=== PATIENT | male | born 1975 | race Hispanic/Latino ===

== ENCOUNTER 2025-03-06 01:22 | Emergency (ER) | payer MEDICAID, SELFPAY ==
[2025-03-06] VITALS (10 sets, daily range): BP systolic 148–222; BP diastolic 83–118; BMI 22.2
[2025-03-06 01:27] LABS: Glucose - Point of Care 209 mg/dl (70-99)
[2025-03-06 01:43] LABS: Hematocrit 37.7 % (39.0-52.0); Hemoglobin 12.2 g/dL (13.0-18.0); Mean Corp Hgb Conc. 32.4 g/dL (33.0-37.0); Mean Corpuscular Volume 95.4 fL (80.0-94.0); Nucleated Red Blood Cells % 0 % (-); Platelet Count 199 10^3/uL (130-400); Red Cell Dist. Width 13.9 % (11.5-14.5)
--- NOTE | 2025-03-06 01:56 | ED.GENMED ---
History of Present Illness
General
Chief Complaint: Abdominal Symptoms
Source: patient
Exam Limitations: clinical condition and altered mental status
Time Seen by Provider: 03/06/25 01:38
Nursing documentation reviewed up to this point in time: agreed with
History of Present Illness
History of Present Illness:
49 male presents with nausea vomiting vomiting bile
Onset 24 hours ago no meds for 24 hours apparently by report
History of diabetes, prior stroke, end-stage renal disease he is blind [facility] is unable to offer much meaningful history
States he is from [place], does not know where he is now
Past History
Past History
ED Past Medical History: CVA, IDDM and Renal failure
Social History
Drug: None
Living: [facility]
Employment: Not employed
Review of Systems
Review of Systems
Unable to obtain full review of systems at this time due to: due to acuity
Other source history: transfer record
All Other Systems: Not applicable
Phy Exam
Physical Exam
Physical Exam:
Physical Exam
General: Ill-appearing male vomiting green material
Neck: Lips dry
Heart: Tunneled catheter on the right
Lungs: no acute respiratory distress. clear bilaterally
Abdomen: Soft mild diffuse tender
Neuro: Blind right sided plegia with contract
Skin: no rash
Psychiatric: Flat affect
Extremities: Edema left transmet amputation on the left
Course
Orders/Labs/Results
Orders:
Orders
03/06/25 01:34
B-Hydroxybutyrate Urgent
Comment: ADD ON
CBC/With Diff [Complete Blood Count/With Diff] Urgent
Comprehensive Metabolic Panel Urgent
03/06/25 01:50
CT Abd/Pel (IV only)-DH only Urgent
Comment:
Reason For Exam: vomiting ESRD ok to scan
Ondansetron Injectable [Zofran] 4 mg IV NOW STA
03/06/25 01:51
CR Chest Portable - 1 View Urgent
Comment:
Reason For Exam: sob
Reason Study Needs to be Portable: Patient Unstable
03/06/25 02:54
Troponin I Urgent
03/06/25 03:04
Add On- LAB Urgent
Tests Added?: Beta hydroxybutyrate
03/06/25 03:25
Insulin Aspart [NOVOLOG vial] 10 units SC NOW STA
03/06/25 03:29
HydrALAZINE [Apresoline] 10 mg IV NOW STA
03/06/25 04:00
Piperacillin/Tazo 2.25 Gram [Zosyn] 2.25 grams in 50 ml IV NOW
03/06/25 04:15
Blood Culture Q30M
SHAI Source: Blood/Venous
Specimen Description:
03/06/25 04:27
EKG [Electrocardiogram (*1)] Urgent
Reason for Study: Hypertension, Benign
03/06/25 04:34
CT Head W/o Iv Contrast Urgent
Comment:
Reason For Exam: Altered mental status, Hypertension
03/06/25 04:41
Lactic Acid Urgent
03/06/25 04:45
Blood Culture Q30M
SHAI Source: Blood/Venous
Specimen Description:
03/06/25 05:00
Nicardipine 40 mg/200 ml [Cardene] 40 mg in 200 ml IV PER PROTOCOL
Initial dose in mg/hr, then titrate:: 5
Titrate to keep:: SBP 120 - 140 mmHg
Titrate by mg/hr:: 2.5 mg/hr
Frequency of titrations (minutes):: 5-15 minutes
Maximum dose in mg/hr:: 15
Begin to taper infusion when:: Remained at goal for 2hrs
Taper by mg/hr:: 2.5 mg/hr
Frequency of taper (minutes) if patient maintains goal:: every 15-30 minutes
Taper to off?: Yes
If infusion off & no longer maintaining goal:: Contact Provider
Abnormal Lab Results
03/06/25 03/06/25 03/06/25
01:26 01:34 02:54
RBC 3.95 L 10^6/uL
(4.70-6.10)
Hgb 12.2 L g/dL
(13.0-18.0)
Hct 37.7 L %
(39.0-52.0)
MCV 95.4 H fL
(80.0-94.0)
MCHC 32.4 L g/dL
(33.0-37.0)
MPV 10.5 H fL
(7.4-10.4)
Absolute Neuts (auto) 7.0 H 10^3/uL
(1.4-6.5)
Absolute Lymphs (auto) 0.7 L 10^3/uL
(1.2-3.4)
Neutrophils % 88.1 H %
(42.2-75.2)
Lymphocytes % 8.7 L %
(20.5-51.1)
Potassium 5.2 H mmol/L
(3.5-5.1)
Carbon Dioxide 19 L mmol/L
(22-30)
BUN 74 H mg/dl
(9-20)
Creatinine 5.4 H* mg/dL
(0.7-1.3)
Glucose 235 H mg/dl
(70-99)
Calcium 10.4 H mg/dl
(8.4-10.2)
Troponin I 0.035 H* ng/ml
Albumin 5.2 H g/dl
(3.5-5.0)
B-Hydroxybutyrate 1.93 H mmol/L
(0.02-0.27)
POC Glucose 209 H mg/dl
(70-99)
03/06/25 01:34
03/06/25 01:34
Vital Signs
Initial and Last Documented VS:
Initial Vital Signs
Temp Pulse Resp BP Pulse Ox
99.2 F 101 18 195/101 96
03/06/25 01:25 03/06/25 01:25 03/06/25 01:25 03/06/25 01:25 03/06/25 01:25
Last Documented Vital Signs
Temp Pulse Resp BP Pulse Ox
99.2 F 97 14 148/83 77
03/06/25 01:25 03/06/25 05:40 03/06/25 05:40 03/06/25 05:40 03/06/25 05:40
MDM/Problems Addressed
Differential Diagnosis Includes:
Obstruction DKA sepsis aspiration pneumonia other
MDM/Problems Addressed:
Vomiting
Chronic conditions affecting care: DM, HTN, Neurological disorder, Psychiatric illness and Kidney disease
Acute Exacerbation and/or Progression of Chronic Illness: DM, HTN, Neurological disorder, Psychiatric illness and Kidney disease
*Radiology
Radiology exam reviewed: radiology read reviewed
*Pulse Oximetry
SaO2: 96
Oxygen Mode of Delivery: Room air
Patient hypoxic: no
*EKG
Interpreted by ED Provider?: Yes
Interpretation: abnormal
Comparison EKG: no comparison EKG present
Heart Rate: 78
Rate: normal
Rhythm: sinus
Ischemia: non-specific ST changes
*Crew Leader Interpretation
Rate: tachycardiac
Interpretation: abnormal
Heart Rate: 118
Rhythm: sinus
*Critical Care Note
Total Time (30-74mins, 75-104mins- exclusive of procedures): 77
Data Reviewed
Source: records
Update Note
Update Note:
Update medically complex male never been here before only records available [facility] will cast a wide net chest x-ray labs EKG CT of the abdomen
Chest x-ray noted labs noted CT reviewed with vision will start IV insulin, check beta hydroxybutyrate
Patient was admitted CT scan of head noted looks like a intracerebral hemorrhage, will transfer to tertiary care center full code
ED Attending Note
-
Portions of this chart may have been created with voice recognition software.� Occasional wrong word or��sound alike� substitutions may have occurred due to the inherent limitations of voice recognition software.
Discharge Plan
Departure
Patient Disposition: Acute [facility]
Date of Disposition: 03/06/25
Time of Disposition: 04:54
Admit to: ICU and IMU
Patient with high blood pressure during this ER visit?: Yes
Condition: Serious
Covid-19: Not Applicable
Discharge Problem:
Intractable nausea vomiting, Acute hyperglycemia, Acute intracerebral hemorrhage
Prescriptions:
No Action
atorvastatin 40 mg Tablet
40 mg PO HS
acetaminophen [Tylenol] 325 mg Tablet
650 mg PO Q6H PRN (Reason: TEMP/ MILD PAIN)
amlodipine 2.5 mg Tablet
2.5 mg PO DAILY
bisacodyl 10 mg Suppository
10 mg [place] DAILY PRN (Reason: CONSTIPATION)
aspirin 81 mg Tablet
81 mg PO DAILY
multivitamin [A To Z Multivitamin] Tablet
1 tab PO DAILY
furosemide 40 mg Tablet
40 mg PO DAILY
sennosides [senna] 8.6 mg Tablet
17.2 mg PO BID
insulin glargine 100 unit/mL Solution
5 unit SC HS
insulin glargine [Lantus U-100 Insulin] 100 unit/mL Solution
15 unit SC DAILY
dextrose [Glucose Gel] 40 % Gel
PO
loperamide 2 mg Tablet
2 mg PO Q4H PRN (Reason: DIARRHEA)
clopidogrel [Plavix] 75 mg Tablet
75 mg PO DAILY
lamotrigine 25 mg Tablet
25 mg PO BID
famotidine 20 mg Tablet
20 mg PO DAILYPRN PRN (Reason: HTN)
buspirone 10 mg Tablet
10 mg PO TID
diphenhydramine HCl 25 mg Tablet
25 mg PO HS PRN (Reason: SLEEP)
lidocaine 5 % Adhesive Patch,Medicated
1 patch TOPICAL DAILY
Rx Instructions:
LOWER BACK
insulin lispro 100 unit/mL Solution
5 unit SC AC
hydroxyzine HCl 10 mg Tablet
10 mg PO QID PRN (Reason: ANXIETY)
sorbitol 70 % Solution
30 ml PO ONCE
calcitriol 0.25 mcg Capsule
See Rx Instructions .ROUTE .COMPLEX
Rx Instructions:
0.25 mcg orally ;DAILY ..SAT
finasteride 5 mg Tablet
5 mg PO DAILY
midodrine 10 mg Tablet
10 mg PO TID PRN (Reason: DIZZINESS)
escitalopram oxalate [Lexapro] 10 mg Tablet
10 mg PO DAILY
cholecalciferol (vitamin D3) 50 mcg (2,000 unit) Tablet
50 mcg PO DAILY
omeprazole magnesium [Acid [employer] (omeprazole)] 20 mg Capsule,Delayed Release(Dr/Ec)
20 mg PO DAILY
cyanocobalamin (vitamin B-12) 2,500 mcg Tablet
2,500 mcg PO DAILY
glucagon HCl [Glucagon (HCl) Emergency Kit] 1 mg Recon Soln
1 mg SC Q20M PRN (Reason: HYPOGLYCEMIA)
Referrals:
Malick Chappell DO [Family Provider, Internal Medicine]
Hospital Transfer
Other hospital: [facility]
I certify that the patient requires transfer: Yes
Discussed case with accepting physician: Jaydon
Reason for transfer: higher level of care
Interventions
Interventions:
*Risk Screen - Suicide Last Done: 03/06/25 01:25
*General Assessment Last Done: 03/06/25 01:25
*Neglect/Abuse Screening Last Done: 03/06/25 01:25
*ED- Fall Risk Assessment Last Done: 03/06/25 01:25
*ED COVID-19 Vaccine History Last Done: 03/06/25 01:25
*Nursing Disposition Last Done: 03/06/25 05:56
QY-Kkkady-Pwtplkgzho Assessment Last Done: 03/06/25 04:28
Discharge Date and Time
Print Language: TURKMEN
[2025-03-06 01:57] LABS: ALT (SGPT) 19 U/L (0-50); AST (SGOT) 22 U/L (17-59); Albumin 5.2 g/dl (3.5-5.0); Alkaline Phosphatase 85 U/L (38-126); Blood Urea Nitrogen 74 mg/dl (9-20); Calcium 10.4 mg/dl (8.4-10.2); Carbon Dioxide 19 mmol/L (22-30); Chloride 105 mmol/L (98-107); Estimated Creatinine Clearance 17 ml/min; Glucose 235 mg/dl (70-99); Potassium 5.2 mmol/L (3.5-5.1); Sodium 142 mmol/L (135-145); Total Protein 8.2 g/dl (6.3-8.2); eGFR 12.04
[2025-03-06] MEDS: ZOFRAN 4 MG IV (02:49)
[2025-03-06 03:51] LABS: Troponin I 0.035 ng/ml
[2025-03-06] MEDS: APRESOLINE 10 MG IV (03:52)
[2025-03-06] MEDS: NOVOLOG vial 10 UNITS SC (03:54)
--- NOTE | 2025-03-06 04:05 | HPS.HSE ---
Addendum entered and electronically signed by Daniel Freeman DO 03/06/25 04:55:
Addendum: CT scan head added given altered mental status, marked hypertension, N/V and prior strokes / bleed per records.
CT scan shows L ventricle hemorrhage. Patient will be transferred to neurosurgical facility for further care.
Admission cancelled.
Original Note:
Family Physician
-
Family Physician: Mailck Chappell, DO
Chief Complaint
-
N/V
History of Present Illness
Patient is a 49y M with PMH significant for ESRD on HD, DM, R hemiparesis s/p CVA and bipolar disorder who presents to ED from local ID for evaluation of N/V. History from ID is that patient has had N/V of bilious emesis for the past 24 hours or
so. Patient complains of abdominal pain and persistent nausea. Here in the ED, he has repeatedly induced vomiting in attempt to alleviate his nausea / pain. Patient provides limited additional history. He does not know where he is at present.
He states that he has been on dialysis since December. He does not know when his last dialysis session was.
ID records note that patient is blind. He was admitted to [facility] on 02/22/25.
It is unclear from which hospital he was admitted. Patient states that he is from [place].
Medical History
Past Medical History
Past Medical History: Reports Other
Additional Past Medical History:
ESRD on HD
ASCVD
Right Hemiparesis s/p CVA
Blindness
Bipolar Depression with history of suicide attempt
GERD
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
Hypertension
Non-Traumatic Intracranial Hemorrhage
Anemia of CKD
Past Surgical History: Reports Other
Additional Past Surgical History:
RUE AVF
R IJ HD Catheter
Left Transmetatarsal Amputation
Social History
Unable to obtain full social history at this time due to: Other (Patient not answering all questions.)
Family History
Family History: Unable to Obtain
Allergies / Home Medications
Allergies reflects when Allergies were last updated in [facility].
Home Medications with original date entered in [facility]
Allergy/Medication List:
Allergies
Allergy/AdvReac Type Severity Reaction Status Date / Time
codeine Allergy Intermediate Hives Verified 03/06/25 02:41
melatonin AdvReac Mild Unknown Verified 03/06/25 02:42
Home Medications
acetaminophen 325 mg tablet (Tylenol) 650 mg PO Q6H PRN TEMP/ MILD PAIN 03/06/25
amlodipine 2.5 mg tablet 2.5 mg PO DAILY 03/06/25
aspirin 81 mg tablet 81 mg PO DAILY 03/06/25
atorvastatin 40 mg tablet 40 mg PO HS 03/06/25
bisacodyl 10 mg rectal suppository 10 mg [place] DAILY PRN CONSTIPATION 03/06/25
buspirone 10 mg tablet 10 mg PO TID 03/06/25
calcitriol 0.25 mcg capsule See Rx Instructions .Route .COMPLEX 03/06/25
cholecalciferol (vitamin D3) 50 mcg (2,000 unit) tablet 50 mcg PO DAILY 03/06/25
clopidogrel 75 mg tablet (Plavix) 75 mg PO DAILY 03/06/25
cyanocobalamin (vitamin B-12) 2,500 mcg tablet 2,500 mcg PO DAILY 03/06/25
dextrose 40 % oral gel (Glucose Gel) PO 03/06/25
diphenhydramine HCl 25 mg tablet 25 mg PO HS PRN SLEEP 03/06/25
escitalopram oxalate 10 mg tablet (Lexapro) 10 mg PO DAILY 03/06/25
famotidine 20 mg tablet 20 mg PO DAILYPRN PRN HTN 03/06/25
finasteride 5 mg tablet 5 mg PO DAILY 03/06/25
furosemide 40 mg tablet 40 mg PO DAILY 03/06/25
glucagon HCl 1 mg solution for injection (Glucagon (HCl) Emergency Kit) 1 mg SC Q20M PRN HYPOGLYCEMIA 03/06/25
hydroxyzine HCl 10 mg tablet 10 mg PO QID PRN ANXIETY 03/06/25
insulin glargine 100 unit/mL subcutaneous solution 5 unit SC HS 03/06/25
insulin glargine 100 unit/mL subcutaneous solution (Lantus U-100 Insulin) 15 unit SC DAILY 03/06/25
insulin lispro 100 unit/mL subcutaneous solution 5 unit SC AC 03/06/25
lamotrigine 25 mg tablet 25 mg PO BID 03/06/25
lidocaine 5 % topical patch 1 patch topical DAILY 03/06/25
loperamide 2 mg tablet 2 mg PO Q4H PRN DIARRHEA 03/06/25
midodrine 10 mg tablet 10 mg PO TID PRN DIZZINESS 03/06/25
multivitamin 1 tab PO DAILY 03/06/25
omeprazole magnesium 20 mg capsule,delayed release (Acid M[employer] (omeprazole)) 20 mg PO DAILY 03/06/25
sennosides 8.6 mg tablet (senna) 17.2 mg PO BID 03/06/25
sorbitol 70 % solution 30 ml PO ONCE 03/06/25
Review of Systems
-
History Source: Patient (Limited ROS due to lack of patient responses.)
Respiratory: Denies Trouble Breathing
Cardiac: Denies Chest Pain
Abdomen/GI: Reports Abdominal Pain, Nausea and Vomiting
Physical Exam
Vital Signs
Vital Signs
Temp Pulse Resp BP Pulse Ox
99.2 F 101 18 195/101 96
03/06/25 01:25 03/06/25 01:25 03/06/25 01:25 03/06/25 01:25 03/06/25 02:00
Physical Exam
General: Other (Ill-appearing 49y M somewhat tremulous / rigors.)
HEENT: Other (Dry MM. Neck supple. )
Respiratory: Other (Decreased at bases - otherwise clear.)
Cardiac: S1/S2 and Regular Rhythm
GI: Soft, Non Distended, Normal Bowel Sounds and Other (Pos diffuse abdominal tenderness - most prominent in the RUQ. Pos guarding.)
Musculoskeletal: Other (L transmet amputation. No peripheral edema. RUE contracture. LUE with linear scar along forearm longitudinally.)
Neuro: Other (Awake and answers some questions. Follow some commands - not consistent with either.)
Laboratory Results
-
03/06/25:34
03/06/25:34
Laboratory Results
Total Bilirubin 1.0 mg/dl (0.2-1.3) 03/06/25:34
AST 22 U/L (17-59) 03/06/25:34
ALT 19 U/L (0-50) 03/06/25:34
Alkaline Phosphatase 85 U/L (38-126) 03/06/25:34
Troponin I 0.035 ng/ml H* 03/06/25 02:54
Impression/Plan
-
A/P: Patient is a 49y M with PMH significant for ESRD on HD, CVA, DM and hypertension who presents to ED complaining of N/V and abdominal pain.
Acute Calculous Cholecystitis
Sepsis secondary to the above
- Admit to ICU for further evaluation and treatment.
- Patient presents with tachycardia, tachypnea, abdominal pain, N/V and CT scan showing distended GB with stones - ? early cholecystitis. Pos RUQ tenderness on exam.
- IV Zosyn renally dosed for now.
- Pain control, supportive care, IVFs.
- Follow fever curve and monitor for any changes in symptoms.
- Surgery evaluation for additional recommendations.
- Additional historical data would be very beneficial in his overall care.
Anion Gap Metabolic Acidosis
- ? DKA versus uremia / ESRD versus sepsis / lactic acidosis.
- Unclear when last HD was - BUN fairly elevated at 74.
- B-OH elevated, but glucose only slightly > 200 and DKA seems less likely.
- Check lactate level, VBG, etc.
- IVF support overnight, glycemic control, IV abx, etc and follow labs / lytes for improvement.
ESRD on HD
- Patient notes that he has been HD dependent since December.
- Has R IJ HD catheter as well as RUE AVF - likely not yet matured.
- Patient does not appear grossly volume overloaded - despite hypertension.
- IVFs overnight.
- Nephrology consulted for HD needs during hospital stay.
DM
- Type of DM is not clear to me in this 49y M with multiple, severe sequelae of uncontrolled disease.
- Continue basal : bolus insulin regimen and adjust as needed for glycemic control.
- Update A1C.
Abnormal Troponin
- Patient does not report chest pain or dyspnea - though ROS is somewhat lacking as noted.
- Check EKG now.
- Suspect non-ischemic troponin elevation in setting of sepsis, ESRD, hypertension, etc.
- Follow troponin to peak.
- Monitor for any chest pain, dyspnea, etc.
ASCVD
Right Hemiparesis s/p CVA
PAD
- Continue DAPT, statin, etc.
- Monitor for any new symptoms, focal deficits, etc.
Hypertensive Urgency
- BP markedly elevated in the ED - ? secondary to pain / nausea given patient distress.
- Continue usual BP med regimen.
- IV Hydralazine as needed for very high BP.
- Consider continuous infusion, nicardipine or similar, if BP poorly controlled.
Bipolar Depression
- Reported prior history of suicide attempt(s).
- Poor communication / intermittently answering questions, etc in the ED.
- Follow for any improvement in mentation / mood with treatment of medical issues as noted above.
- Continue current psychotropic medications.
DVT Prophylaxis: Subcut Heparin
Code Status: Full
[2025-03-06] MEDS: CARDENE 200 IV (05:00)
== END 2025-03-06 05:56 | disposition short-term general hospital (02) ==
LOC: EMR 01:22
PROVIDERS: Hospitalist; EMERGENCY PHYSICIAN Emergency Medicine; FAMILY PHYSICIAN Internal Medicine
DX: I61.9 Nontraumatic intracerebral hemorrhage, unspecified (principal); E11.65 Type 2 diabetes mellitus with hyperglycemia; E11.22 Type 2 diabetes mellitus with diabetic chronic kidney disease; I12.0 Hypertensive chronic kidney disease with stage 5 chronic kidney disease or end stage renal disease; N18.6 End stage renal disease; E11.21 Type 2 diabetes mellitus with diabetic nephropathy; E11.40 Type 2 diabetes mellitus with diabetic neuropathy, unspecified; E11.319 Type 2 diabetes mellitus with unspecified diabetic retinopathy without macular edema; E11.51 Type 2 diabetes mellitus with diabetic peripheral angiopathy without gangrene; I16.0 Hypertensive urgency; I25.10 Atherosclerotic heart disease of native coronary artery without angina pectoris; D63.1 Anemia in chronic kidney disease; I69.351 Hemiplegia and hemiparesis following cerebral infarction affecting right dominant side; F31.9 Bipolar disorder, unspecified; K21.9 Gastro-esophageal reflux disease without esophagitis; E87.20 Acidosis, unspecified; Z79.4 Long term (current) use of insulin; Z79.02 Long term (current) use of antithrombotics/antiplatelets; Z79.82 Long term (current) use of aspirin; Z99.2 Dependence on renal dialysis; Z89.432 Acquired absence of left foot; Z91.51 Personal history of suicidal behavior
CPT/HCPCS: 99291; 99292; 96374; 96375 ×4; 96372; 70450; 71045; 74177; 80053; 82010; 82962; 83605; 84484; 85025; Q9967

== ENCOUNTER 2025-05-09 19:00 | Inpatient (IN) | payer OTHER, SELFPAY ==
[2025-05-09 13:01] VITALS: BP 194/100
--- NOTE | 2025-05-09 13:35 | ED.GENMED ---
ED Provider Triage
<Jacob Orr MD, Resident - Last Filed: 05/09/25 17:11>
-
Patient seen by provider in Triage?: Seen in Triage
History of Present Illness
<Jacob Orr MD, Resident - Last Filed: 05/09/25 17:11>
General
Chief Complaint: Social Service Referral
Source: patient
Exam Limitations: none
Time Seen by Provider: 05/09/25 13:04
History of Present Illness
History of Present Illness:
49-year-old male with an extensive medical history who presents today from [facility] because he needs dialysis. He was started on dialysis in November of this year and received dialysis at [facility]. Decided to become hospice sometime in March.
He was admitted by the medical team at [facility] because up until a week ago he was a hospice patient then all of a sudden he changed his mind and wanted to live and wanted dialysis so that he could be with his grandchildren. The medical staff
deemed him competent to make medical decisions at [facility]. 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 No headache, fever, chills, nausea, vomiting, diarrhea or constipation, abdominal pain, weight loss.
Past History
<Jacob Orr MD, Resident - Last Filed: 05/09/25 17:11>
Past History
ED Past Medical History: CVA, IDDM and Renal failure
Social History
Drug: None
Living: [facility]
Employment: Not employed
Review of Systems
<Jacob Orr MD, Resident - Last Filed: 05/09/25 17:11>
Review of Systems
All Other Systems: ROS reviewed and negative except as documented in HPI and ROS
Phy Exam
<Jacob Orr MD, Resident - Last Filed: 05/09/25 17:11>
General Physical Exam
General Presentation: well appearing
General Skin: warm
General Habitus: normal
General Mental: alert
General Chronic Disability: contractures (Right-sided hands and feet)
Eye Exam
Eye Exam: other (Patient is blind in both eyes)
Pulmonary Exam
Pulmonary Exam: lungs clear and no respiratory distress
Gastrointestinal Exam
Gastrointestinal Exam: normal bowel sounds, non tender, soft, non distended and other (Has a PEG tube)
Neurological Exam
Neurological Exam: alert and other (Right sided hemiplegia with contractures)
Musculoskeletal Exam
Musculoskeletal Exam: other (Left transmetatarsal amputation)
Course
<Jacob Orr MD, Resident - Last Filed: 05/09/25 17:11>
Orders/Labs/Results
Orders:
Orders
05/09/25 14:06
CBC/With Diff [Complete Blood Count/With Diff] Urgent
CMP [Comprehensive Metabolic Panel] Urgent
05/09/25 14:37
Electrocardiogram (*1) Urgent
Reason for Study: Fatigue / Weakness
EKG- Treatment ONCE
05/09/25 14:45
Type And Crossmatch [Type+Screen] Urgent
05/09/25 16:23
Sodium Zirconium Cyclosilicate [Lokelma] 10 gram PO NOW STA
Abnormal Lab Results
05/09/25
14:06
RBC 2.39 L 10^6/uL
(4.70-6.10)
Hgb 7.2 L g/dL
(13.0-18.0)
Hct 23.2 L %
(39.0-52.0)
MCV 97.1 H fL
(80.0-94.0)
MCHC 31.0 L g/dL
(33.0-37.0)
Absolute Lymphs (auto) 1.0 L 10^3/uL
(1.2-3.4)
Neutrophils % 77.0 H %
(42.2-75.2)
Lymphocytes % 16.0 L %
(20.5-51.1)
Potassium 5.7 H mmol/L
(3.5-5.1)
Chloride 112 H mmol/L
(98-107)
Carbon Dioxide 19 L mmol/L
(22-30)
BUN 73 H mg/dl
(9-20)
Creatinine 4.6 H* mg/dL
(0.7-1.3)
Glucose 132 H mg/dl
(70-99)
05/09/25 14:06
05/09/25 14:06
Vital Signs
Initial and Last Documented VS:
Initial Vital Signs
Temp Pulse Resp BP Pulse Ox
98.0 F 74 20 194/100 97
05/09/25 13:01 05/09/25 13:01 05/09/25 13:01 05/09/25 13:01 05/09/25 13:01
Last Documented Vital Signs
Temp Pulse Resp BP Pulse Ox
98.0 F 78 11 194/100 97
05/09/25 13:01 05/09/25 14:15 05/09/25 14:15 05/09/25 13:01 05/09/25 13:45
<Yassine Lai DO - Last Filed: 05/09/25 14:39>
Orders/Labs/Results
Orders:
Orders
05/09/25 14:06
CBC/With Diff [Complete Blood Count/With Diff] Urgent
CMP [Comprehensive Metabolic Panel] Urgent
05/09/25 14:37
Electrocardiogram (*1) Urgent
Reason for Study: Fatigue / Weakness
EKG- Treatment ONCE
05/09/25 14:45
Type And Crossmatch [Type+Screen] Urgent
05/09/25 16:23
Sodium Zirconium Cyclosilicate [Lokelma] 10 gram PO NOW STA
Abnormal Lab Results
05/09/25
14:06
RBC 2.39 L 10^6/uL
(4.70-6.10)
Hgb 7.2 L g/dL
(13.0-18.0)
Hct 23.2 L %
(39.0-52.0)
MCV 97.1 H fL
(80.0-94.0)
MCHC 31.0 L g/dL
(33.0-37.0)
Absolute Lymphs (auto) 1.0 L 10^3/uL
(1.2-3.4)
Neutrophils % 77.0 H %
(42.2-75.2)
Lymphocytes % 16.0 L %
(20.5-51.1)
Potassium 5.7 H mmol/L
(3.5-5.1)
Chloride 112 H mmol/L
(98-107)
Carbon Dioxide 19 L mmol/L
(22-30)
BUN 73 H mg/dl
(9-20)
Creatinine 4.6 H* mg/dL
(0.7-1.3)
Glucose 132 H mg/dl
(70-99)
05/09/25 14:06
05/09/25 14:06
Vital Signs
Initial and Last Documented VS:
Initial Vital Signs
Temp Pulse Resp BP Pulse Ox
98.0 F 74 20 194/100 97
05/09/25 13:01 05/09/25 13:01 05/09/25 13:01 05/09/25 13:01 05/09/25 13:01
Last Documented Vital Signs
Temp Pulse Resp BP Pulse Ox
98.0 F 78 11 194/100 97
05/09/25 13:01 05/09/25 14:15 05/09/25 14:15 05/09/25 13:01 05/09/25 13:45
<Jacob Orr MD, Resident - Last Filed: 05/09/25 17:11>
MDM/Problems Addressed
Differential Diagnosis Includes:
Dialysis
MDM/Problems Addressed:
- CBC shows hemoglobin of 7.2, type and screen ordered, consent obtained, will repeat hemoglobin and transfuse if less than 7
- CMP shows creatinine of 4.6, hyper kalemia of 5.7, normal sodium, administered 10 mg of Lokelma
Admit patient to hospitalist team with diagnosis of dialysis.
<Jacob Orr MD, Resident - Last Filed: 05/09/25 17:11>
*Pulse Oximetry
SaO2: 97
Oxygen Mode of Delivery: Room air
Patient hypoxic: no
*Critical Care Note
Total Time (30-74mins, 75-104mins- exclusive of procedures): Not Applicable
ED Attending Note
<Jacob Orr MD, Resident - Last Filed: 05/09/25 17:11>
-
Portions of this chart may have been created with voice recognition software.� Occasional wrong word or��sound alike� substitutions may have occurred due to the inherent limitations of voice recognition software.
<Yassine Lai, DO - Last Filed: 05/09/25 14:39>
ED Attending Note
Patient seen and examined by attending physician: Yes
I performed the substantive portion of visit, reviewed & personally made and approve the management plan that is documented in note by myself or RAMONA.: Yes
ED Attending Note:
49-year-old male presents to the emergency room from [facility] where they were unable to do dialysis for him today. Patient had evidently opted for hospice care earlier this month. Therefore he stopped receiving dialysis. Today he
determined he does not want to continue to be on hospice and wants full treatment. They were unable to perform dialysis today because they have a policy to not do dialysis on a patient that has missed 2 sessions. The patient offers no other
complaints. He does seem confused. He cannot explain why he was on hospice initially and what has gone into his decision to reverse hospice.
General: Awake, Alert, Oriented X1. No acute distress but appears chronically ill
Vitals: unremarkable
Head: Atraumatic
Eyes: Pupils equal, EOMI
Throat: Airway intact, no exudates
Neck: Trachea midline
Lungs: Clear and equal b/l
Neuro: Grossly nonfocal
Skin: Warm, dry, no rash
Extremities: pulses equal b/l, no edema
Patient presents essentially for dialysis. He does not appear to be in any acute distress though he is hypertensive. Initial labs show significant anemia with a hemoglobin of 7.2. Type and screen ordered.
Discharge Plan
Departure
Patient Disposition: Admit
Date of Disposition: 05/09/25
Time of Disposition: 16:52
Presentation/result/management discussed w/ accepting MD/DO: Hospitalist
Discharge Problem:
Dialysis patient
Prescriptions:
No Action
acetaminophen [Tylenol] 325 mg Tablet
650 mg PO Q6HPRN PRN (Reason: TEMP/ MILD PAIN)
bisacodyl 10 mg Suppository
10 mg TN DAILYPRN PRN (Reason: if no bm aftr mom)
insulin glargine 100 unit/mL Solution
7 unit SC HS
loperamide 2 mg Tablet
2 mg feeding tube Q6HPRN PRN (Reason: DIARRHEA)
lamotrigine 25 mg Tablet
25 mg feeding tube BID
sorbitol 70 % Solution
30 ml PO DAILYPRN PRN (Reason: constipation)
midodrine 10 mg Tablet
5 mg feeding tube MOWEFR PRN (Reason: DIZZINESS)
escitalopram oxalate [Lexapro] 10 mg Tablet
15 mg feeding tube DAILY
cyanocobalamin (vitamin B-12) 2,500 mcg Tablet
2,500 mcg PO DAILY
trazodone 50 mg Tablet
25 mg PO HS
polyethylene glycol 3350 [Miralax] 17 gram Powder In Packet
17 g feeding tube DAILYPRN PRN (Reason: constipation)
ondansetron HCl [Zofran] 4 mg Tablet
4 mg feeding tube Q6HPRN PRN (Reason: nausea)
morphine 20 mg/5 mL (4 mg/mL) Solution
1 mg PO Q3HPRN PRN (Reason: sob)
insulin aspart U-100 100 unit/mL Solution
1 sliding scale dose SC AC
Rx Instructions:
151-200=1units, 201-250=2units, 251-300=3units
hyoscyamine sulfate [Levsin] 0.125 mg Tablet
0.125 mg PO Q6HPRN PRN (Reason: secretions)
camphor-menthol 0.5-0.5 % Lotion
1 applic TOPICAL BIDPRN PRN (Reason: itching)
aspirin 81 mg Tablet,Chewable
81 mg feeding tube DAILY
lorazepam 2 mg/mL Concentrate
1 mg PO Q4HPRN PRN (Reason: anixety)
carboxymethylcellulose sodium [Refresh] 1 % Drops, Liquid Gel
1 drp BOTH EYES Q6HPRN PRN (Reason: dry eyes)
cyclobenzaprine [Flexeril] 5 mg Tablet
5 mg feeding tube Q8HPRN PRN (Reason: spasms)
bacitracin zinc 500 unit/gram Ointment In Packet
1 applic topical BID
zinc oxide 40 % Ointment
1 applic TOPICAL DAILYPRN PRN (Reason: groin,buttock,sacrum)
Referrals:
Malick Chappell DO [Family Provider, Internal Medicine]
Interventions
Interventions:
*Risk Screen - Suicide Last Done: 05/09/25 13:15
*General Assessment Last Done: 05/09/25 13:15
*Neglect/Abuse Screening Last Done: 05/09/25 14:46
*ED- Fall Risk Assessment Last Done: 05/09/25 14:46
*ED COVID-19 Vaccine History Last Done: 05/09/25 14:46
*ED Influenza Vaccine History Last Done: 05/09/25 14:46
ED-Psychological Assessment Last Done: 05/09/25 14:20
Discharge Date and Time
Print Language: ARABIC
[2025-05-09 14:13] LABS: Hematocrit 23.2 % (39.0-52.0); Hemoglobin 7.2 g/dL (13.0-18.0); Mean Corp Hgb Conc. 31.0 g/dL (33.0-37.0); Mean Corpuscular Volume 97.1 fL (80.0-94.0); Nucleated Red Blood Cells % 0 % (-); Platelet Count 266 10^3/uL (130-400); Red Cell Dist. Width 13.8 % (11.5-14.5)
[2025-05-09 14:44] LABS: ALT (SGPT) 18 U/L (0-50); AST (SGOT) 26 U/L (17-59); Albumin 3.7 g/dl (3.5-5.0); Alkaline Phosphatase 68 U/L (38-126); Blood Urea Nitrogen 73 mg/dl (9-20); Calcium 8.8 mg/dl (8.4-10.2); Carbon Dioxide 19 mmol/L (22-30); Chloride 112 mmol/L (98-107); Glucose 132 mg/dl (70-99); Potassium 5.7 mmol/L (3.5-5.1); Sodium 139 mmol/L (135-145); Total Protein 6.7 g/dl (6.3-8.2); eGFR 14.60
[2025-05-09 16:00] VITALS: BP 174/115
[2025-05-09 17:00] VITALS: BP 170/101
[2025-05-09 18:00] VITALS: BP 181/91
[2025-05-09 18:16] VITALS: BP 167/101
[2025-05-09] MEDS: LOKELMA 10 GRAM PO (18:21)
[2025-05-09] MEDS: TRANDATE 10 MG IV (18:22)
--- NOTE | 2025-05-09 18:56 | HPS.HSE ---
Family Physician
-
Family Physician: Malick Chappell, DO
Chief Complaint
-
Missed Dialysis
History of Present Illness
49M Blind ESRD HD DM HTN CVA rt hemiparesis PEG Bipolar recent Hospitalization [facility] Feb - Mar 2025 for left ICH, Formerly [facility] resident, recent transition to hospice care a week ago, presents following revoking Hospice and requesting to resume
dialysis. Labs notable for anemia and mild hyperkalemia. Hypertensive but otherwise stable respiratory status on room air. Patient AOx1 oriented only to self but coherent able to verbalize the consequences of his decisions/actions, confirmed that
he wanted to resume active care including dialysis.
Medical History
Past Medical History
Past Medical History: Reports Other (as above)
Past Surgical History: Reports Other (as above)
Social History
Tobacco: Non-smoker
Alcohol: None
Drug: None
Personal: Single
Living: [facility]
Employment: Not Employed
Family History
Family History: Not pertinent (reviewed)
Allergies / Home Medications
Allergies reflects when Allergies were last updated in [facility].
Home Medications with original date entered in [facility]
Allergy/Medication List:
Allergies
Allergy/AdvReac Type Severity Reaction Status Date / Time
codeine Allergy Intermediate Hives Verified 03/06/25 02:41
melatonin AdvReac Mild Unknown Verified 03/06/25 02:42
Home Medications
acetaminophen 325 mg tablet (Tylenol) 650 mg PO Q6HPRN PRN TEMP/ MILD PAIN 03/06/25
bisacodyl 10 mg rectal suppository 10 mg DE DAILYPRN PRN if no bm aftr mom 03/06/25
cyanocobalamin (vitamin B-12) 2,500 mcg tablet 2,500 mcg PO DAILY 03/06/25
escitalopram oxalate 10 mg tablet (Lexapro) 15 mg feeding tube DAILY 03/06/25
insulin glargine 100 unit/mL subcutaneous solution 7 unit SC HS 03/06/25
lamotrigine 25 mg tablet 25 mg feeding tube BID 03/06/25
loperamide 2 mg tablet 2 mg feeding tube Q6HPRN PRN DIARRHEA 03/06/25
midodrine 10 mg tablet 5 mg feeding tube MOWEFR PRN DIZZINESS 03/06/25
sorbitol 70 % solution 30 ml PO DAILYPRN PRN constipation 03/06/25
aspirin 81 mg chewable tablet 81 mg feeding tube DAILY 05/09/25
bacitracin zinc 500 unit/gram topical ointment in packet 1 applic topical BID both nostrils 05/09/25
camphor-menthol 0.5 %-0.5 % lotion 1 applic topical BIDPRN PRN itching 05/09/25
carboxymethylcellulose sodium 1 % eye liquid gel drops 1 drp BOTH EYES Q6HPRN PRN dry eyes 05/09/25
cyclobenzaprine 5 mg tablet 5 mg feeding tube Q8HPRN PRN spasms 05/09/25
hyoscyamine sulfate 0.125 mg tablet (Levsin) 0.125 mg PO Q6HPRN PRN secretions 05/09/25
insulin aspart U-100 100 unit/mL subcutaneous solution 1 sliding scale dose SC AC 05/09/25
lorazepam 2 mg/mL oral concentrate 1 mg PO Q4HPRN PRN anixety 05/09/25
morphine 20 mg/5 mL (4 mg/mL) oral solution 1 mg PO Q3HPRN PRN sob 05/09/25
ondansetron HCl 4 mg tablet 4 mg feeding tube Q6HPRN PRN nausea 05/09/25
polyethylene glycol 3350 17 gram oral powder packet (Miralax) 17 g feeding tube DAILYPRN PRN constipation 05/09/25
trazodone 50 mg tablet 25 mg PO HS 05/09/25
zinc oxide 40 % topical ointment 1 applic topical DAILYPRN PRN groin,buttock,sacrum 05/09/25
Review of Systems
-
A 12 point ROS was completed and negative except as noted: Yes
Constitutional: Reports Other (as below)
Physical Exam
Vital Signs
Vital Signs
Temp Pulse Resp BP Pulse Ox
98.0 F 73 15 181/91 100
05/09/25 13:01 05/09/25 18:30 05/09/25 18:30 05/09/25 18:22 05/09/25 16:45
Physical Exam
General: Other (as below)
Laboratory Results
-
05/09/25 14:06
05/09/25 14:06
Laboratory Results
Total Bilirubin 0.4 mg/dl (0.2-1.3) 05/09/25 14:06
AST 26 U/L (17-59) 05/09/25 14:06
ALT 18 U/L (0-50) 05/09/25 14:06
Alkaline Phosphatase 68 U/L (38-126) 05/09/25 14:06
Impression/Plan
-
ROS
General: Denies fever chills night sweats unexpected weight loss
Neuro: Denies seizure shaking loss of consciousness dizziness vertigo
Psych: denies depression hallucinations confusion manic episodes
Endocrine: Denies polyuria polydipsia polyphagia heat/cold intolerance
HEENT: Denies blindness visual disturbances epistaxis
Pulmonary: denies coughing hemoptysis sneezing sob dyspnea on exertion
Cardiovascular: denies chest pain palpitations leg swelling
Hematology: denies signs symptoms of anemia easy bruising/bleeding
Gastrointestinal: denies nausea vomiting diarrhea constipation hematemesis hematochezia melena
Genito-Urinary: denies retention incontinence dysuria
Musculoskeletal: denies joint pain, reports right sided hemiparesis
Dermatology: denies rash laceration bruising
Physical Exam
General: No pallor, cyanosis, or jaundice.
HEENT: Throat clear. Normocephalic atraumatic. Moist mucus membrane
NECK: Supple. No JVD Carotid Bruits
RESPIRATORY: Lungs clear to auscultation. No crackles wheezes stridor
CVS: S1, S2 normal. RRR. No murmur, rub or gallop. Right sided chest port,
ABDOMEN: Soft, non-tender. No distension. BS+/normal. PEG tube present
EXTREMITIES: No peripheral cyanosis or edema. RUE palpable thrill
STONE AND CONCRETE WASHER: AOx1 oriented to person only, conversant coherent, right sided hemiparesis
Psych: calm
IMPRESSION:
49M Blind ESRD HD DM HTN CVA rt hemiparesis PEG Bipolar recent Hospitalization [facility] Feb - Mar 2025 for left ICH, Formerly [facility] resident, recent transition to hospice care a week ago, presents following revoking Hospice and requesting to resume
dialysis. Labs notable for anemia and mild hyperkalemia. Hypertensive but otherwise stable respiratory status on room air. Patient AOx1 oriented only to self but coherent able to verbalize the consequences of his decisions/actions, confirmed that
he wanted to resume active care including dialysis.
PLAN:
#ESRD
#Hyperkalemia K 5.7
#HTN
Tele Admit
received once Karo in ED
K restricted diet
monitor Potassium
Labetalol prn SBP>180 or DBP>100
Nephro Eval requested
#DM
f/u A1c
low dose sliding scale
cont home Lantus 7U HS
#Hx CVA rt hemiparesis
#Hx Lt ICH
#PEG placement
cont home ASA
discussed w/t patient's sister Medical Proxy, patient due to have PEG tube reversed, tolerating oral dysphagia diet
ST/PT/OT eval
#Bipolar
#Depression
#Anxiety
cont home Trazodone Lamictal
prn Ativan 0.5 mg PO Q8hprn anxiety
DVT ppx SCD
Full Code
Discussed with patient and patient's sister medical proxy Vivian
I spent a total of 76 minutes with the patient or on the floor. More than 50% of this time involved counseling and coordination of care.
--- NOTE | 2025-05-09 19:00 | EDRN ---
Report received, patient is sleeping at this time, call serna in reach.
--- NOTE | 2025-05-09 21:18 | EDRN ---
Patient yelling for nurse, went in patient reports he peed himself, patient was cleaned up, new linen placed on the bed, condom cath placed on patient, patient was fed his meal, patient ate 100% of his meal, lights turned down, call serna in reach,
went over the importance of using call serna.
[2025-05-09 21:20] VITALS: BMI 22.8
[2025-05-09 21:59] LABS: Glucose - Point of Care 185 mg/dl (70-99)
[2025-05-09] MEDS: DESYREL 25 MG TUBE (22:09)
[2025-05-09] MEDS: LANTUS 0.07 UNITS SC (22:10)
[2025-05-09] MEDS: LAMICTAL 25 MG TUBE (22:10)
--- NOTE | 2025-05-09 22:35 | PTCARENOTE ---
pt arrived from ED @ 2230; pt safely moved from stretcher into bed; pt oriented to name only; VSS; tele monitor # [id number]; bed locked in lowest position; call serna within reach; care ongoing;
[2025-05-09 22:44] VITALS: BP 165/102; BMI 20.8
[2025-05-10 03:15] VITALS: BP 160/91
[2025-05-10 05:33] VITALS: BMI 20.7
[2025-05-10 07:00] VITALS: BP 155/92
--- NOTE | 2025-05-10 07:46 | W.PN.HOSP.TC ---
Today's Communication/Plan
-
Medically stable for discharge back to [facility] after Dialysis
Assessment / Plan
Assessment / Plan
Physical Exam
General: No pallor, cyanosis, or jaundice.
HEENT: Throat clear. Normocephalic atraumatic. Moist mucus membrane
NECK: Supple. No JVD Carotid Bruits
RESPIRATORY: Lungs clear to auscultation. No crackles wheezes stridor
CVS: S1, S2 normal. RRR. No murmur, rub or gallop. Right sided chest port,
ABDOMEN: Soft, non-tender. No distension. BS+/normal. PEG tube present
EXTREMITIES: No peripheral cyanosis or edema. RUE palpable thrill
SUMMER CLERK: AOx1 oriented to person only, conversant coherent, right sided hemiparesis
Psych: calm
IMPRESSION:
49M Blind ESRD HD DM HTN CVA rt hemiparesis PEG Bipolar recent Hospitalization [facility] Feb - Mar 2025 for left ICH, [facility] resident, recent transition to hospice care a week ago, presents following revoking Hospice and requesting to resume
dialysis. Labs notable for anemia and mild hyperkalemia. Hypertensive but otherwise stable respiratory status on room air. Patient AOx1 oriented only to self but coherent able to verbalize the consequences of his decisions/actions, confirmed that
he wanted to resume active care including dialysis.
PLAN:
#ESRD
#Hyperkalemia K 5.7
#HTN
Tele Admit
received once [place] in ED
K restricted diet
monitor Potassium
Labetalol prn SBP>180 or DBP>100
Nephro Eval appreciated stable for discharge back to [facility] after dialysis
#Anemia likely 2/2 ESRD
Epogen as per Nephro
#DM
A1c 6.9
low dose sliding scale
cont home Lantus 7U HS
#Hx CVA rt hemiparesis
#Hx Lt ICH
#PEG placement
cont home ASA
discussed w/t patient's sister Medical Proxy, patient due to have PEG tube reversed, tolerating oral dysphagia diet
ST eval appreciated patient appropriate for pureed diet thin liquids
#Bipolar
#Depression
#Anxiety
cont home Trazodone Lamictal
prn Ativan 0.5 mg PO Q8hprn anxiety
Outpt follow up with psychiatry recommended
DVT ppx SCD
Full Code
Medically stable for discharge back to SNF with outpatient follow up recommendations
Discussed with patient and patient's sister medical proxy Vivian
Total Time Preparing Discharge ___40____ minutes including examination of the patient, summary of the hospital stay, instructions for continuing care to all relevant caregivers; and preparation of discharge records, prescriptions, and referral
forms if necessary.
Anticipated Discharge: Today
Subjective/Interval History
-
Date of Service: May 10, 2025
No acute distress, appears comfortable. Denies new acute issues at this time.
Objective Data
-
Labs:
Laboratory Results
05/10/25
06:00
WBC Pending
Hgb Pending
Hct Pending
Plt Count Pending
Sodium Pending
Potassium Pending
Chloride Pending
Carbon Dioxide Pending
BUN Pending
Creatinine Pending
Glucose Pending
Calcium Pending
Vital Signs:
Vital Signs
Temp Pulse Resp BP Pulse Ox
97.8 F 68 18 160/91 98
05/10/25 03:15 05/10/25 03:15 05/10/25 03:15 05/10/25 03:15 05/10/25 03:15
I&O
05/09/25 05/10/25 05/11/25
06:59 06:59 06:59
Intake Total 0 / 0
Balance 0 / 0
[2025-05-10 07:54] LABS: Glucose - Point of Care 82 mg/dl (70-99)
[2025-05-10] MEDS: NOVOLOG FLEXPEN-LOW RESISTANCE SC ×2 (09:22→17:26)
--- NOTE | 2025-05-10 09:32 | W.CON.NEPH ---
Consultation
-
Date/Time Consultation Requested: May 09, 2025 at 1900
Date/Time Consultation Performed: 2024 at 9 AM
Requesting Provider: Rosette Crews
Performing Provider: Dr. Iglesias
Reason for Consultation: ESRD
Medical History
-
Chief Complaint: ESRD
History of Present Illness:
Blind ESRD HD DM HTN CVA rt hemiparesis PEG Bipolar recent Hospitalization [facility] Feb - Mar 2025 for left ICH, [facility] resident, recent transition to hospice care a week ago, presents following revoking Hospice and requesting to resume
dialysis.
Renal consult for surgical disease
He has a right permacath
Patient unable to provide history as he responds' I do not know' for most questions
Past Medical History
Blind ESRD HD DM HTN CVA rt hemiparesis PEG Bipolar
Social History
Tobacco: Non-Smoker
Family History
Family History: Not Pertinent
Allergies / Home Medications
Allergy/AdvReac Type Severity Reaction Status Date / Time
codeine Allergy Hives Verified 05/09/25 19:55
melatonin Allergy Unknown Verified 05/09/25 19:55
�Medication �Instructions �Recorded �Confirmed �Type
acetaminophen 325 mg tablet 650 mg PO Q6HPRN PRN TEMP/ MILD 03/06/25 05/09/25 History
(Tylenol) PAIN
bisacodyl 10 mg rectal suppository 10 mg [place] DAILYPRN PRN if no bm 03/06/25 05/09/25 History
aftr mom
cyanocobalamin (vitamin B-12) 2,500 mcg PO DAILY 03/06/25 05/09/25 History
2,500 mcg tablet
escitalopram oxalate 10 mg tablet 15 mg feeding tube DAILY 03/06/25 05/09/25 History
(Lexapro)
insulin glargine 100 unit/mL 7 unit SC HS 03/06/25 05/09/25 History
subcutaneous solution
lamotrigine 25 mg tablet 25 mg feeding tube BID 03/06/25 05/09/25 History
loperamide 2 mg tablet 2 mg feeding tube Q6HPRN PRN 03/06/25 05/09/25 History
DIARRHEA
midodrine 10 mg tablet 5 mg feeding tube MOWEFR PRN 03/06/25 05/09/25 History
DIZZINESS
sorbitol 70 % solution 30 ml PO DAILYPRN PRN constipation 03/06/25 05/09/25 History
aspirin 81 mg chewable tablet 81 mg feeding tube DAILY 05/09/25 05/09/25 History
bacitracin zinc 500 unit/gram 1 applic topical BID both nostrils 05/09/25 05/09/25 History
topical ointment in packet
camphor-menthol 0.5 %-0.5 % lotion 1 applic topical BIDPRN PRN itching 05/09/25 05/09/25 History
carboxymethylcellulose sodium 1 % 1 drp BOTH EYES Q6HPRN PRN dry eyes 05/09/25 05/09/25 History
eye liquid gel drops
cyclobenzaprine 5 mg tablet 5 mg feeding tube Q8HPRN PRN spasms 05/09/25 05/09/25 History
hyoscyamine sulfate 0.125 mg 0.125 mg PO Q6HPRN PRN secretions 05/09/25 05/09/25 History
tablet (Levsin)
insulin aspart U-100 100 unit/mL 1 sliding scale dose SC AC 05/09/25 05/09/25 History
subcutaneous solution
lorazepam 2 mg/mL oral concentrate 1 mg PO Q4HPRN PRN anixety 05/09/25 05/09/25 History
morphine 20 mg/5 mL (4 mg/mL) oral 1 mg PO Q3HPRN PRN sob 05/09/25 05/09/25 History
solution
ondansetron HCl 4 mg tablet 4 mg feeding tube Q6HPRN PRN nausea 05/09/25 05/09/25 History
polyethylene glycol 3350 17 gram 17 g feeding tube DAILYPRN PRN 05/09/25 05/09/25 History
oral powder packet (Miralax) constipation
trazodone 50 mg tablet 25 mg PO HS 05/09/25 05/09/25 History
zinc oxide 40 % topical ointment 1 applic topical DAILYPRN PRN 05/09/25 05/09/25 History
groin,buttock,sacrum
Review of Systems
-
No chest pain or shortness of breath
All other systems: Negative unless noted
Physical Exam
Vital Signs
Vital Signs
Temp Pulse Resp BP Pulse Ox
98.2 F 75 16 155/92 98
05/10/25 07:00 05/10/25 07:00 05/10/25 07:00 05/10/25 07:00 05/10/25 07:00
Lab Results
eGFR 14.60 05/09/25 14:06
Albumin 3.7 g/dl (3.5-5.0) 05/09/25 14:06
Physical Exam
General no acute distress
HEENT no cephalic atraumatic no JVD neck supple
lungs clear to auscultation bilateral
heart regular S1-S2 positive
abdomen soft nontender positive bowel sounds
extremities no edema pulses present bilateral
Neurologically alert and oriented x 2
Skin no lesions no abrasions no petechiae
Psych normal affect no bizarre behavior
Data Reviewed
-
Labs: Labs Reviewed by me, Discussed with Nurse and Discussed with Patient
Assessment/Plan
-
Blind ESRD HD DM HTN CVA rt hemiparesis PEG Bipolar recent Hospitalization [facility] Feb - Mar 2025 for left ICH, [facility] resident, recent transition to hospice care a week ago, presents following revoking Hospice and requesting to resume
dialysis.
Impression
ESRD on dialysis no regular schedule
Hyperkalemia
Anemia of CKD
Status post CVA
Plan
Dialysis today
Epogen
See orders
Should be okay with next treatment on
Recheck labs
[2025-05-10 10:51] LABS: Glucose - Point of Care 191 mg/dl (70-99)
[2025-05-10 11:00] VITALS: BP 158/93
--- NOTE | 2025-05-10 11:27 | PTOTSP ---
Speech Therapy Evaluation:
Pt with chronic risk factors of dysphagia including CVA with R hemiparesis. Per chart, pt with recent hospitalization for L ICH and has a PEG. Pt's sister, who is medical proxy reported that pt is due to have PEG tube reversed and is tolerating
dysphagia diet. Pt on puree and thin liquids per [place] facesheet. At bedside, oral and pharyngeal stage of swallowing appeared grossly functional for consistencies assessed. No chest imaging completed thus far, however WBC WNL, pt on room air, and is
afebrile.
Recommend:
1. Continue baseline diet of IDDSI Level 4 (puree) and thin liquids
2. Medications as best tolerated
3. Full feeding assistance
4. Strict aspiration precautions
5. HOME CARE ASSOCIATE to follow to monitor current diet level and determine if pt appropriate for future diet advancements
--- NOTE | 2025-05-10 11:46 | CM ---
CM spoke with nursing at [facility]- unsure if he is STR vs LTC resident
Pt has been a resident there for a few months on service for hospice
Has now revoked hospice and will need HD for ESRD
Pt has hemiparesis, blind, peg tube
He is a 2 person assist for stand/pivot from bed to W/C which he is unable to self propel
He is not able to ambulate or participate in any of care including feeding and oral care
Pt is alert to self only and is his own decision maker
SNF noted his sister is very involved with his care
She noted good skin integrity no wounds or respiratory needs/devices
She noted significant decline over the past past few months due to hospice
PCP- Malick Chappell
Rx- [facility]
VM left for SNF admissions to inquire into STR vs LTC state, [place] bed-hold and if auth will be needed for SNF return
Awaiting call back
Discharge Disposition- return [facility]
[2025-05-10] MEDS: NOVOLOG vial 0.01 UNITS SC (12:24)
[2025-05-10 12:26] LABS: Hematocrit 22.0 % (39.0-52.0); Hemoglobin 7.0 g/dL (13.0-18.0); Mean Corp Hgb Conc. 31.8 g/dL (33.0-37.0); Mean Corpuscular Volume 99.5 fL (80.0-94.0); Platelet Count 228 10^3/uL (130-400); Red Cell Dist. Width 13.7 % (11.5-14.5)
[2025-05-10 12:57] LABS: Glycohemoglobin (HgbA1c) 6.9 % (4.0-5.6)
[2025-05-10 13:00] LABS: Blood Urea Nitrogen 72 mg/dl (9-20); Calcium 8.4 mg/dl (8.4-10.2); Carbon Dioxide 18 mmol/L (22-30); Chloride 112 mmol/L (98-107); Estimated Creatinine Clearance 19 ml/min; Glucose 214 mg/dl (70-99); Magnesium 1.7 mg/dl (1.6-2.3); Potassium 5.6 mmol/L (3.5-5.1); Sodium 138 mmol/L (135-145); eGFR 14.99
[2025-05-10] MEDS: RETACRIT 10000 UNITS IV (13:49)
[2025-05-10 13:52] LABS: Hepatitis B Surface Antigen Negative (Negative)
[2025-05-10 15:00] VITALS: BP 124/83
[2025-05-10] MEDS: TYLENOL 650 MG TUBE ×2 (15:21→21:30)
--- NOTE | 2025-05-10 16:36 | W.PN.NEPH.HD ---
Assessment
-
Tolerating dialysis and ultrafiltration
Okay for discharge postdialysis
Progress Note - Hemodialysis
-
Date of Service: May 10, 2025
Duration: 30 minutes and 3 hours
Potassium Bath: 2
Calcium Bath: 2.5
Opti-Dialyzer: 160
Ultrafiltration: EDW
Blood Flow: 400
Dialysate Flow: 600
EPO: 10K
[2025-05-10 17:20] LABS: Glucose - Point of Care 85 mg/dl (70-99)
[2025-05-10] MEDS: LEXAPRO 15 MG TUBE (17:21)
[2025-05-10] MEDS: LAMICTAL 25 MG TUBE ×2 (17:21→19:55)
[2025-05-10] MEDS: LOW STRENGTH ASPIRIN 81 MG TUBE (17:21)
[2025-05-10] MEDS: NOVOLOG FLEXPEN-LOW RESISTANCE 1 UNITS SC (17:22)
[2025-05-10 19:52] VITALS: BP 155/89
[2025-05-10] MEDS: DESYREL 25 MG TUBE (21:30)
[2025-05-10 21:55] LABS: Glucose - Point of Care 134 mg/dl (70-99)
[2025-05-10] MEDS: LANTUS 0.07 UNITS SC (22:15)
[2025-05-10 23:14] VITALS: BP 120/74
[2025-05-11] MEDS: FLEXERIL 5 MG TUBE (00:54)
[2025-05-11 03:05] VITALS: BP 129/82
[2025-05-11 05:22] VITALS: BMI 21.5
[2025-05-11 07:00] VITALS: BP 141/78
[2025-05-11 07:12] LABS: Glucose - Point of Care 86 mg/dl (70-99)
[2025-05-11] MEDS: NOVOLOG FLEXPEN-LOW RESISTANCE SC ×2 (08:34→12:04)
--- NOTE | 2025-05-11 08:58 | W.PN.HOSP.TC ---
Today's Communication/Plan
-
discharge
Assessment / Plan
Assessment / Plan
Physical Exam
General: No pallor, cyanosis, or jaundice.
HEENT: Throat clear. Normocephalic atraumatic. Moist mucus membrane
NECK: Supple. No JVD Carotid Bruits
RESPIRATORY: Lungs clear to auscultation. No crackles wheezes stridor
CVS: S1, S2 normal. RRR. No murmur, rub or gallop. Right sided chest port,
ABDOMEN: Soft, non-tender. No distension. BS+/normal. PEG tube present
EXTREMITIES: No peripheral cyanosis or edema. RUE palpable thrill
SHEETING PULLER: AOx1 oriented to person only, conversant coherent, right sided hemiparesis
Psych: calm
IMPRESSION:
49M Blind ESRD HD DM HTN CVA rt hemiparesis PEG Bipolar recent Hospitalization [facility] Feb - Mar 2025 for left ICH, [facility] resident, recent transition to hospice care a week ago, presents following revoking Hospice and requesting to resume
dialysis. Labs notable for anemia and mild hyperkalemia. Hypertensive but otherwise stable respiratory status on room air. Patient AOx1 oriented only to self but coherent able to verbalize the consequences of his decisions/actions, confirmed that
he wanted to resume active care including dialysis.
PLAN:
#ESRD
#Hyperkalemia K 5.7
#HTN
Tele Admit
received once Yelenanc in ED
K restricted diet
monitor Potassium
Labetalol prn SBP>180 or DBP>100
Nephro Eval appreciated stable for discharge back to [facility] after dialysis
#Anemia likely 2/2 ESRD
Epogen as per Nephro
#DM
A1c 6.9
low dose sliding scale
cont home Lantus 7U HS
#Hx CVA rt hemiparesis
#Hx Lt ICH
#PEG placement
cont home ASA
discussed w/t patient's sister Medical Proxy, patient due to have PEG tube reversed, tolerating oral dysphagia diet
ST eval appreciated patient appropriate for pureed diet thin liquids
#Bipolar
#Depression
#Anxiety
cont home Trazodone Lamictal
prn Ativan 0.5 mg PO Q8hprn anxiety
Outpt follow up with psychiatry recommended
DVT ppx SCD
Full Code
Medically stable for discharge back to SNF with outpatient follow up recommendations
Discussed with patient and patient's sister medical proxy Vivian
Total Time Preparing Discharge ___36____ minutes including examination of the patient, summary of the hospital stay, instructions for continuing care to all relevant caregivers; and preparation of discharge records, prescriptions, and referral
forms if necessary.
Anticipated Discharge: Today
Subjective/Interval History
-
Date of Service: May 11, 2025
No acute distress, resting comfortably in bed, overall reports feeling well. Denies new acute issues. Looking forward to returning to [facility].
Objective Data
-
Labs:
Laboratory Results
05/11/25
06:00
WBC Cancelled
Hgb Cancelled
Hct Cancelled
Plt Count Cancelled
Sodium Cancelled
Potassium Cancelled
Chloride Cancelled
Carbon Dioxide Cancelled
BUN Cancelled
Creatinine Cancelled
Glucose Cancelled
Calcium Cancelled
Vital Signs:
Vital Signs
Temp Pulse Resp BP Pulse Ox
98.0 F 67 15 141/78 98
05/11/25 07:00 05/11/25 07:00 05/11/25 07:00 05/11/25 07:00 05/11/25 07:00
I&O
05/10/25 05/11/25 05/12/25
06:59 06:59 06:59
Intake Total 0 / 0 640 / 640
Balance 0 / 0 640 / 640
[2025-05-11] MEDS: LAMICTAL 25 MG TUBE (09:12)
[2025-05-11] MEDS: LOW STRENGTH ASPIRIN 81 MG TUBE (09:12)
[2025-05-11] MEDS: LEXAPRO 15 MG TUBE (09:12)
--- NOTE | 2025-05-11 09:36 | W.DCSUMMARY ---
Discharge Summary
Discharge Data
Date of Admission: 05/09/25
Date of Discharge: 05/11/25
-
Pending Results: No
Discharge Plan
-
Patient Disposition: Penitentiary/SNF
Discharge Diagnosis/Procedures: End Stage Renal Disease, missed dialysis
Anemia likely due to end stage renal disease
Diabetes
history stroke with right hemiparesis
history PEG placement
Bipolar/Depression/Anxiety
Condition: Fair
Diet: 2 Gram Sodium, Diabetic, Carb Controlled, Restrict fluids to 48 oz and Other diet
Additional Diets: 2 g potassium restricted diet, pureed diet
Activity: With assistance and As tolerated
Driving Restrictions: No driving
Bathing Restrictions: None
Blood Work: Repeat CBC and BMP in 1 week of discharge with Primary care provider or Nephrology
Activity Restrictions/Additional Instructions:
Follow up with primary care provider and psychiatry less than 1 week of discharge.
Levsin, Ativan, and Morphine discontinued. Has not required during stay. Follow up with primary care provider and/or other healthcare provider involved in care before considering to resume.
Referrals:
Malick Chappell, [Family Provider, Internal Medicine] - in less than 1 week
Prescriptions:
Continued
acetaminophen [Tylenol] 325 mg Tablet
650 mg PO Q6HPRN PRN (Reason: TEMP/ MILD PAIN)
bisacodyl 10 mg Suppository
10 mg [place] DAILYPRN PRN (Reason: if no bm aftr mom)
insulin glargine 100 unit/mL Solution
7 unit SC HS
loperamide 2 mg Tablet
2 mg feeding tube Q6HPRN PRN (Reason: DIARRHEA)
lamotrigine 25 mg Tablet
25 mg feeding tube BID
sorbitol 70 % Solution
30 ml PO DAILYPRN PRN (Reason: constipation)
midodrine 10 mg Tablet
5 mg feeding tube MOWEFR PRN (Reason: DIZZINESS)
escitalopram oxalate [Lexapro] 10 mg Tablet
15 mg feeding tube DAILY
cyanocobalamin (vitamin B-12) 2,500 mcg Tablet
2,500 mcg PO DAILY
trazodone 50 mg Tablet
25 mg PO HS
polyethylene glycol 3350 [Miralax] 17 gram Powder In Packet
17 g feeding tube DAILYPRN PRN (Reason: constipation)
ondansetron HCl 4 mg Tablet
4 mg feeding tube Q6HPRN PRN (Reason: nausea)
insulin aspart U-100 100 unit/mL Solution
1 sliding scale dose SC AC
Rx Instructions:
151-200=1units, 201-250=2units, 251-300=3units
camphor-menthol 0.5-0.5 % Lotion
1 applic TOPICAL BIDPRN PRN (Reason: itching)
aspirin 81 mg Tablet,Chewable
81 mg feeding tube DAILY
carboxymethylcellulose sodium 1 % Drops, Liquid Gel
1 drp BOTH EYES Q6HPRN PRN (Reason: dry eyes)
cyclobenzaprine 5 mg Tablet
5 mg feeding tube Q8HPRN PRN (Reason: spasms)
bacitracin zinc 500 unit/gram Ointment In Packet
1 applic topical BID
zinc oxide 40 % Ointment
1 applic TOPICAL DAILYPRN PRN (Reason: groin,buttock,sacrum)
Discontinued
morphine 20 mg/5 mL (4 mg/mL) Solution
1 mg PO Q3HPRN PRN (Reason: sob)
hyoscyamine sulfate [Levsin] 0.125 mg Tablet
0.125 mg PO Q6HPRN PRN (Reason: secretions)
lorazepam 2 mg/mL Concentrate
1 mg PO Q4HPRN PRN (Reason: anixety)
Discharge Orders:
Discharge Patient (As Directed); Ordered 05/11/25
Ordered By: Rosette Crews
Discharge Date and Time
Print Language: CROATIAN
[2025-05-11 11:00] VITALS: BP 158/90
--- NOTE | 2025-05-11 11:42 | CM ---
CM following re: discharge planning.
Reviewed pt's chart, met with pt.
Discharge order noted. Pt is aware and he stated he wants to return back to [facility]. IMM reviewed verbally with the pt, pt cannot sign due to Blindness. [facility]OROMA letter placed on chart.
CM spoke to HD RN and she stated that pt is due to HD treatment today.
Pt is a rn long term care care resident at [facility], a referral to [facility] made, spoke to liaison Eliza and she confirmed that pt is accepted for admission today and she requested flow sheets be faxed to [facility].
Flow sheet will be faxed to [facility] at [phone]
to arrange ambulance transport BLS. PMNC completed and left with
[facility] nursing report: [phone]
Discharge instructions fax: [phone]
D/C plan: return back to [facility] for a LTC after HD treatment.
[2025-05-11 11:50] LABS: Glucose - Point of Care 117 mg/dl (70-99)
[2025-05-11 12:20] LABS: Hematocrit 22.8 % (39.0-52.0); Hemoglobin 7.5 g/dL (13.0-18.0)
[2025-05-11 12:36] LABS: Carbon Dioxide 29 mmol/L (22-30); Chloride 99 mmol/L (98-107); Potassium 4.4 mmol/L (3.5-5.1); Sodium 133 mmol/L (135-145)
[2025-05-11] MEDS: RETACRIT 10000 UNITS IV (13:17)
[2025-05-11] MEDS: MANNITOL 25% 12.5 GRAMS IV ×2 (13:18→14:35)
--- NOTE | 2025-05-11 14:25 | W.PN.NEPH.HD ---
Assessment
-
pt seen during HD
vitals stable
euvolemic, limited UF since po intake is less
BP soft end SBP 91
high dose IVAN for anemia
CVC functions fine
for d/c post HD
Progress Note - Hemodialysis
-
Date of Service: May 11, 2025
Duration: 30 minutes and 3 hours
Potassium Bath: 2
Calcium Bath: 2.5
Opti-Dialyzer: 160
Ultrafiltration: Other (0.5-1kg)
Blood Flow: 400
Dialysate Flow: 600
Heparin: no
EPO: [id number]
[2025-05-11 15:15] VITALS: BP 109/64
[2025-05-11 17:15] LABS: Glucose - Point of Care 160 mg/dl (70-99)
== END 2025-05-11 18:05 | DRG 683 ==
LOC: 2 SOUTH 19:00
PROVIDERS: Internal Medicine; ADMITTING PHYSICIAN Internal Medicine; CONSULT PHYSICIAN Internal Medicine Nephrology; EMERGENCY PHYSICIAN Emergency Medicine; FAMILY PHYSICIAN Internal Medicine
PROC: 5A1D70Z Performance of Urinary Filtration, Intermittent, Less than 6 Hours Per Day (ICD-10-PCS; 2025-05-10)
DX: N18.6 End stage renal disease (principal); I69.351 Hemiplegia and hemiparesis following cerebral infarction affecting right dominant side; D63.1 Anemia in chronic kidney disease; I12.0 Hypertensive chronic kidney disease with stage 5 chronic kidney disease or end stage renal disease; E11.22 Type 2 diabetes mellitus with diabetic chronic kidney disease; F32.A Depression, unspecified; F41.9 Anxiety disorder, unspecified; E87.5 Hyperkalemia; Z88.5 Allergy status to narcotic agent; Z79.4 Long term (current) use of insulin; Z79.82 Long term (current) use of aspirin; Z79.899 Other long term (current) drug therapy; Z93.1 Gastrostomy status; Z99.2 Dependence on renal dialysis; H54.8 Legal blindness, as defined in USA
CPT/HCPCS: 80048; 80051; 80053; 82962; 83036; 83735; 84100; 85014; 85018; 85025; 85027; 86706; 86850; 86900; 86901; 87070; 87340; 92610; 93005; 99285; Q5106

== ENCOUNTER 2025-06-29 11:16 | Emergency (ER) | payer OTHER, SELFPAY ==
[2025-06-29] VITALS (13 sets, daily range): BP systolic 101–160; BP diastolic 57–90; BMI 20.9
--- NOTE | 2025-06-29 11:19 | ED.GENMED ---
History of Present Illness
General
Chief Complaint: Abnormal Lab Value
Source: patient and ambulance crew
Exam Limitations: other (pt poor historian)
Time Seen by Provider: 06/29/25 11:18
Nursing documentation reviewed up to this point in time: agreed with
History of Present Illness
History of Present Illness:
49 yo male dialysis pt whose last dialysis was 05/11/25 when he revoked his Hospice status and came here for dialysis.
Hx blindness, DM, HTN, CVA, R hemiparesis, PEG tube, Bipolar, ICH 03/2025,
Sister states he was on hospice and she just found out today that he has not been doing dialysis. She wants him DNR, but is being told she does not have power to make decisions. He intermittently confused, not knowing the year one time then knowing
it another time. Doesn't realize the severity of his health, thinks he's going to get better. She states that at times he only gets partial dialysis as 'he just stops it' as he is of sound mind. RN called her told Jun 17 was last dialysis and he
did not do a full 4 hours. Since he missed 2 or more dialysis cannot do it at the facility. He told facility he wants to be on Hospice so sister has appointment at [facility] a 1 p.m. tomorrow to discuss putting him back on. His dialysis was done on
Maye PEREIRA at [facility] confirms all of above.
Past History
Past History
ED Past Medical History: CVA, GERD, HTN, Hypercholesterolemia, IDDM, Renal failure, Hyperthyroidism, Psychiatric (Bipolar/depression) and Other (ICH)
ED Past Surgical History: Brain (V-P shunt)
Social History
Drug: None
Living: jail
Employment: Not employed
Review of Systems
Review of Systems
Allergies reviewed?: Yes
All Other Systems: ROS reviewed and negative except as documented in HPI and ROS
Phy Exam
Physical Exam
Physical Exam:
GENERAL: No acute distress. Alert, states 'I don't know' when asked if he knows where he is or the year.
CONSTITUTIONAL: Afebrile.
EYES: clear, conjunctivae normal
ENMT: moist mucus membranes, Pharynx nl
RESPIRATORY: Regular respirations, nonlabored, lungs clear.
CARDIOVASCULAR: Regular rate and rhythm, no murmurs, no rubs.
GI: Soft, nontender, normal BS
MUSCULOSKELETAL: Paraplegia
SKIN: Warm, dry, pink. Dialysis catheter right upper chest wall.
PSYCH: Normal mood and affect. Well kept, interactive and appropriate
NEUROLOGIC: Awake, alert and oriented to name, current situation, ie 'yes' when asked if he wants dialysis, 'can I have orange juice' 'can I have more orange juice?' swallowing well. Paraplegia.
Course
Orders/Labs/Results
Orders:
Orders
06/29/25 11:29
Complete Blood Count/With Diff Urgent
Comprehensive Metabolic Panel Urgent
06/29/25 12:14
Albumin Human 25% 50 ml [Flexbumin 25% For Hemodialysis] 12.5 grams IV HD-Q1HPRN PRN
Epoetin Milton-Epbx [Retacrit] 10,000 units IV HD-ONCE ONE
Heparin See Dose Instructions INTRACATH HD-ONCE ONE
Mannitol 25% 12.5 grams IV HD-Q1HPRN PRN
Sodium Chloride [Sodium Chloride 4 Meq/ml For Hemodialysis] 10 ml IV HD-Q1HPRN PRN
Hemodialysis treatment As Directed
Treatment date:: 06/29/25
Treatment type: Hemodialysis
Ultrafiltration (kg): 1.5
Treatment time (duration): 3 hours
Use dialysis access:: Tunneled Cath
Dialyzer:: Optiflux 160
Blood flow rate minimum: 350
Blood flow rate maximum: 400
Dialysis flow rate: 600 mL/min
Dialysate temperature: 35 degrees Celsius
Sodium (Na): 140
Potassium (K): 2
Calcium (Ca): 2.5
Bicarbonate (HCO3): 35
Abnormal Lab Results
06/29/25
11:29
RBC 2.93 L 10^6/uL
(4.70-6.10)
Hgb 8.9 L g/dL
(13.0-18.0)
Hct 27.8 L %
(39.0-52.0)
MCV 94.9 H fL
(80.0-94.0)
MCHC 32.0 L g/dL
(33.0-37.0)
Potassium 5.4 H mmol/L
(3.5-5.1)
Chloride 113 H mmol/L
(98-107)
BUN 67 H mg/dl
(9-20)
Creatinine 5.2 H* mg/dL
(0.7-1.3)
Glucose 105 H mg/dl
(70-99)
06/29/25 11:29
06/29/25 11:29
Vital Signs
Initial and Last Documented VS:
Initial Vital Signs
Temp Pulse Pulse Ox
97.9 F 59 98
06/29/25 11:26 06/29/25 11:26 06/29/25 11:26
Last Documented Vital Signs
Temp Pulse Resp BP Pulse Ox
97.9 F 59 12 130/88 100
06/29/25 11:26 06/29/25 15:45 06/29/25 15:30 06/29/25 15:30 06/29/25 13:30
MDM/Problems Addressed
MDM/Problems Addressed:
49 yo male dialysis pt whose last dialysis was 05/11/25 when he revoked his Hospice status and came here for dialysis.
Hx blindness, DM, HTN, CVA, R hemiparesis, PEG tube, Bipolar, ICH 03/2025,
Sister states he was on hospice and she just found out today that he has not been doing dialysis. She wants him DNR, but is being told she does not have power to make decisions. He intermittently confused, not knowing the year one time then knowing
it another time. Doesn't realize the severity of his health, thinks he's going to get better. She states that at times he only gets partial dialysis as 'he just stops it' as he is of sound mind. RN called her told Jun 17 was last dialysis and he
did not do a full 4 hours. Since he missed 2 or more dialysis cannot do it at the facility. He told facility he wants to be on Hospice so sister has appointment at [facility] a 1 p.m. tomorrow to discuss putting him back on. His dialysis was done on
Maye PEREIRA at [facility] confirms all of above.
Pt is asking 'what is that' when asked if he wants to be on Hospice, he doesn't seem to understand what it means to be on Hospice. I explained it to him and informed Maye PEREIRA at [facility] of this and requested she be certain he understands Hospice at
their meeting tomorrow.
12:10 a.m.
CBC unremarkable at his baseline
CMP BUN/Creat 67/5.[address] Gutierrez who is in seeing pt, will dialyze here and send back to [facility]
4:15 p.m.
Pt had 3 hours of dialysis.
Stable for discharge back to [facility]
Sister updated
*Pulse Oximetry
Patient hypoxic: no
*Critical Care Note
Total Time (30-74mins, 75-104mins- exclusive of procedures): Not Applicable
ED Attending Note
-
Portions of this chart may have been created with voice recognition software.� Occasional wrong word or��sound alike� substitutions may have occurred due to the inherent limitations of voice recognition software.
Discharge Plan
Departure
Patient Disposition: Prison/SNF
Date of Disposition: 06/29/25
Time of Disposition: 16:48
Condition: Fair
Discharge Problem:
End-stage renal disease needing dialysis
Prescriptions:
No Action
acetaminophen [Tylenol] 325 mg Tablet
650 mg PO Q6HPRN PRN (Reason: TEMP/ MILD PAIN)
bisacodyl 10 mg Suppository
10 mg [place] DAILYPRN PRN (Reason: if no bm aftr mom)
insulin glargine 100 unit/mL Solution
7 unit SC HS
loperamide 2 mg Tablet
2 mg feeding tube Q6HPRN PRN (Reason: DIARRHEA)
lamotrigine 25 mg Tablet
25 mg feeding tube BID
sorbitol 70 % Solution
30 ml PO DAILYPRN PRN (Reason: constipation)
midodrine 10 mg Tablet
5 mg feeding tube MOWEFR PRN (Reason: DIZZINESS)
escitalopram oxalate [Lexapro] 10 mg Tablet
15 mg feeding tube DAILY
cyanocobalamin (vitamin B-12) 2,500 mcg Tablet
2,500 mcg PO DAILY
trazodone 50 mg Tablet
25 mg PO HS
polyethylene glycol 3350 [Miralax] 17 gram Powder In Packet
17 g feeding tube DAILYPRN PRN (Reason: constipation)
ondansetron HCl 4 mg Tablet
4 mg feeding tube Q6HPRN PRN (Reason: nausea)
insulin aspart U-100 100 unit/mL Solution
1 sliding scale dose SC AC
Rx Instructions:
151-200=1units, 201-250=2units, 251-300=3units
camphor-menthol 0.5-0.5 % Lotion
1 applic TOPICAL BIDPRN PRN (Reason: itching)
aspirin 81 mg Tablet,Chewable
81 mg feeding tube DAILY
carboxymethylcellulose sodium 1 % Drops, Liquid Gel
1 drp BOTH EYES Q6HPRN PRN (Reason: dry eyes)
cyclobenzaprine 5 mg Tablet
5 mg feeding tube Q8HPRN PRN (Reason: spasms)
bacitracin zinc 500 unit/gram Ointment In Packet
1 applic topical BID
zinc oxide 40 % Ointment
1 applic TOPICAL DAILYPRN PRN (Reason: groin,buttock,sacrum)
Referrals:
Gale Burger MD [Family Provider]
Activity Restrictions/Additional Instructions:
As we discussed, continue dialysis schedule, if pt wants to stop after two hours, do so and keep next dialysis appointment.
He recieved 3 hours of dialysis here today.
Interventions
Interventions:
*Risk Screen - Suicide Last Done: 06/29/25 11:20
*General Assessment Last Done: 06/29/25 11:20
*Neglect/Abuse Screening Last Done: 06/29/25 11:20
*ED COVID-19 Vaccine History Last Done: 06/29/25 11:20
*ED Influenza Vaccine History Last Done: 06/29/25 11:20
[facility] Fall Risk Assessment Tool Last Done: 06/29/25 11:20
Discharge Date and Time
Print Language: ARMENIAN
[2025-06-29 11:44] LABS: Hematocrit 27.8 % (39.0-52.0); Hemoglobin 8.9 g/dL (13.0-18.0); Mean Corp Hgb Conc. 32.0 g/dL (33.0-37.0); Mean Corpuscular Volume 94.9 fL (80.0-94.0); Nucleated Red Blood Cells % 0 % (-); Platelet Count 210 10^3/uL (130-400); Red Cell Dist. Width 13.0 % (11.5-14.5)
[2025-06-29 12:06] LABS: ALT (SGPT) 11 U/L (0-50); AST (SGOT) 23 U/L (17-59); Albumin 3.9 g/dl (3.5-5.0); Alkaline Phosphatase 49 U/L (38-126); Blood Urea Nitrogen 67 mg/dl (9-20); Calcium 8.8 mg/dl (8.4-10.2); Carbon Dioxide 22 mmol/L (22-30); Chloride 113 mmol/L (98-107); Estimated Creatinine Clearance 17 ml/min; Glucose 105 mg/dl (70-99); Potassium 5.4 mmol/L (3.5-5.1); Sodium 139 mmol/L (135-145); Total Protein 7.1 g/dl (6.3-8.2); eGFR 12.60
[2025-06-29] MEDS: RETACRIT 10000 UNITS IV (14:29)
[2025-06-29] MEDS: HEPARIN 4000 UNITS INTRACATH (14:30)
--- NOTE | 2025-06-29 14:58 | W.PN.NEPH.HD ---
Assessment
-
Pt seen on HD. no complaints. VSS, access ok
ok to return to [facility] after HD to resume HD schedule friday
He refuses HD because he says the seats are uncomfortable.
Progress Note - Hemodialysis
-
Date of Service: June 29, 2025
Duration: 3 hours
Potassium Bath: 2
Calcium Bath: 2.5
Opti-Dialyzer: 160
Ultrafiltration: Other (2.5)
Blood Flow: 400
Dialysate Flow: 600
Heparin: 0
EPO: [id number]
== END 2025-06-29 17:49 ==
LOC: EMR 11:16
PROVIDERS: Registered Nurse; EMERGENCY PHYSICIAN Emergency Medicine; FAMILY PHYSICIAN Internal Medicine
DX: E11.22 Type 2 diabetes mellitus with diabetic chronic kidney disease (principal); I12.0 Hypertensive chronic kidney disease with stage 5 chronic kidney disease or end stage renal disease; N18.6 End stage renal disease; E78.00 Pure hypercholesterolemia, unspecified; I69.351 Hemiplegia and hemiparesis following cerebral infarction affecting right dominant side; G82.20 Paraplegia, unspecified; K21.9 Gastro-esophageal reflux disease without esophagitis; F31.9 Bipolar disorder, unspecified; E05.90 Thyrotoxicosis, unspecified without thyrotoxic crisis or storm; H54.7 Unspecified visual loss; Z99.2 Dependence on renal dialysis; Z91.158 Patient's noncompliance with renal dialysis for other reason; Z79.4 Long term (current) use of insulin; Z79.82 Long term (current) use of aspirin; Z98.2 Presence of cerebrospinal fluid drainage device
CPT/HCPCS: 99283; 80053; 85025; P9047; Q5106